=== PATIENT | female | born 1975 | race Caucasian/White ===

== ENCOUNTER → 2016-04-30 | Day surgery (SDC) | payer OTHER, MEDICARE ==
[~2016-04-30] VITALS: Ht 162.6 cm; Wt 72.6 kg
[~2016-04-30] MED LIST: CYMBALTA60 M1 PO; DEPAKOTE500 M1 PO; DIVALPROEX SOD250 MG PO; DIVALPROEX SOD500 MG PO; DULOXETINE60 MG PO; IMITREX100 M1 PO; QUETIAPINE FUM100 MG PO; SEROQUEL (MONO200 MG PO; SEROQUEL100 M1 PO; TOPAMAX100 M1 PO; TOPIRAMATE100 MG PO
--- NOTE | 2016-05-07 09:35 | Operative Report ---
See Addendum Operative/Inv Procedure Report Surgery Date: 04/29/16 Name of Procedure: LEEP Pre-Operative Diagnosis: ELIER-2 Post-Operative Diagnosis: Same Estimated Blood Loss: scant Surgeon/Radio Electrician: MILA GUSTAFSON,SHAUN Jessica Anesthesia: local monitored anesthesi Operative/Procedure Note Note: The patient was taken to the operating room placed in dorsosupine position, time out was done with patient awake after the induction of anesthesia patient was prepped and draped in usual sterile fashion. Cervix was circumferentially injected with a dilute solution of 1 percent lidocaine with epinephrine endocervical canal was noted to be straight a large LEEP cone biopsy was taken cone bed is hemostatic secondary to electrocautery and ECC was performed and sent to pathology along with the cone biopsy specimen and hemostasis was then achieved with Monsel solution. The patient was noted to recovery room in good condition
== END ==
LOC: STS 01:25
DX: N87.1 Moderate cervical dysplasia (principal); J45.909 Unspecified asthma, uncomplicated; F17.200 Nicotine dependence, unspecified, uncomplicated
CPT/HCPCS: 36415; 81025; 88305; 88307; J2250